=== PATIENT | male | born 1995 | race Caucasian/White ===

== ENCOUNTER 2017-09-09 16:58 | Emergency (ER) | payer MEDICAID ==
[~2017-09-09] VITALS: Ht 157.5 cm; Wt 86.2 kg
[~2017-09-09 16:58] MED LIST: IBUP200C5 PO
[2017-09-09 17:03] VITALS: BP 140/77
--- NOTE | 2017-09-09 17:25 | NUR ---
RAPID STREP DONE AND WALKED INTO THE LAB.
[2017-09-09] MEDS ORDERED: ONDANSETRON 4 MG TAB.RAPDIS ONE (17:30)
[2017-09-09] MEDS ORDERED: ONDANSETRON 4 MG TAB.RAPDIS PO ONE (17:30)
--- NOTE | 2017-09-09 18:13 | NUR ---
20 MINS FOR RAPID STREP RESULT.
== END 2017-09-09 18:37 | disposition home or self-care (01) ==
LOC: ER 16:59
DX: J02.9 Acute pharyngitis, unspecified (principal); J45.909 Unspecified asthma, uncomplicated
CPT/HCPCS: 86403-TC; 87070-TC; A4606; Z7610

== ENCOUNTER 2021-03-10 12:07 | Emergency (ER) | payer MEDICAID, OTHER ==
[~2021-03-10] VITALS: Ht 162.6 cm; Wt 86.2 kg
[2021-03-10 12:19] VITALS: BP 121/78
[2021-03-10] MEDS ORDERED: TDAP [DIPH/PERTUSSIS/TET] 0.5 ML VIAL IM ONE ×2 (12:30→12:34)
[2021-03-10] MEDS ORDERED: LIDOCAINE 1%-EPI 1:100,000 20 ML VIAL TP ONE (12:30)
[2021-03-10] MEDS ORDERED: LIDOCAINE 1%-EPI 1:100,000 20 ML VIAL ONE (12:34)
--- NOTE | 2021-03-10 13:26 | NUR ---
lac repair done by dr. barrett.
== END 2021-03-10 13:34 | disposition home or self-care (01) ==
LOC: ER 12:07
DX: S51.811A Laceration without foreign body of right forearm, initial encounter (principal); J45.909 Unspecified asthma, uncomplicated; W26.8XXA Contact with other sharp object(s), not elsewhere classified, initial encounter; Y93.E9 Activity, other interior property and clothing maintenance; Y92.89 Other specified places as the place of occurrence of the external cause; Y99.8 Other external cause status
CPT/HCPCS: 12002; 90471; 90715; 99283; J3490

== ENCOUNTER → 2021-04-10 | Emergency (ER) | payer OTHER ==
[~2021-04-10] VITALS: Ht 160 cm; Wt 90.7 kg
[~2021-04-10] MED LIST changes: +HYDR-3972 PO
--- NOTE | 2021-04-10 02:00 | NUR ---
PT CAME IN WITH LEFT FOOT PAIN X 3 DAYS. PT STATES HIT FOOT ON BED AND NOW HAS DIFFICUTLY WALKING.
--- NOTE | 2021-04-10 02:45 | NUR ---
Patient discharged to home in stable condition. Written and verbal after care instructions given. Patient verbalizes understanding of instruction.
[2021-04-10 02:51] VITALS: BP 111/60
== END ==
LOC: ER 01:46
DX: S92.512A Displaced fracture of proximal phalanx of left lesser toe(s), initial encounter for closed fracture (principal); J45.909 Unspecified asthma, uncomplicated; Z79.899 Other long term (current) drug therapy; W22.8XXA Striking against or struck by other objects, initial encounter; Y93.89 Activity, other specified; Y92.89 Other specified places as the place of occurrence of the external cause; Y99.8 Other external cause status
CPT/HCPCS: 73630-TC